=== PATIENT | male | born 1980 | race American Indian/Alaskan Native ===

== ENCOUNTER 2023-10-06 23:12 | Emergency (ER) | payer OTHER ==
[2023-10-06 23:41] LABS: BASOPHILS PERCENT AUTO 0.1 % (0.0-1.0); HEMATOCRIT 45.2 % (40.0-54.0); HEMOGLOBIN 14.9 g/dL (14.0-18.0); LYMPHOCYTES PERCENT AUTO 27.7 % (20.5-50.1); MEAN CORPUSCULAR HEMOGLOBIN 30.7 pg (27.0-34.0); MEAN CORPUSCULAR VOLUME 93.2 fL (80-100); MONOCYTES PERCENT AUTO 9.5 % (2-8); NEUTROPHILS PERCENT AUTO 59.7 % (42.2-75.2); PLATELET COUNT,PLT 278 10^3/uL (150-450); RED BLOOD CELL COUNT 4.85 10^6/uL (4.6-6.2); WHITE BLOOD CELL COUNT,WBC 9.9 10^3/uL (5.0-10.0)
[2023-10-06 23:56] VITALS: BP 144/83; PULSE 58
[2023-10-06 23:59] LABS: A/G RATIO 0.8; ALBUMIN 3.5 g/dL (3.4-5.0); ANION GAP 13.5 mEq/L (7-13); BILIRUBIN TOTAL 0.3 mg/dL (0.2-1.0); BUN/CREATININE RATIO 15.9 (No establ ref range); CALCIUM 8.7 mg/dL (8.5-10.1); CREATININE 0.88 mg/dL (0.70-1.30); EST CRCL DRUG DOSING (CG) 120.03 mL/min; POTASSIUM,K 3.5 mmol/L (3.5-5.1); PROTEIN TOTAL,TP 7.7 g/dL (6.4-8.2)
[2023-10-07 00:37] LABS: APPEARANCE,URINE CLEAR (CLEAR); BILIRUBIN,URINE NEGATIVE (NEGATIVE); COLOR,URINE YELLOW (YELLOW); GLUCOSE,URINE NEGATIVE (NEGATIVE); KETONES,URINE NEGATIVE (NEGATIVE); LEUKOCYTE ESTERASE,URINE NEGATIVE (NEGATIVE); NITRITE,URINE NEGATIVE (NEGATIVE); OCCULT BLOOD,URINE TRACE-INTACT (NEGATIVE); PROTEIN,URINE NEGATIVE (NEGATIVE); UROBILINOGEN,URINE 0.2 mg/dL (0.2-1.0)
[2023-10-07 00:49] LABS: BACTERIA,URINE RARE /HPF (0-FEW/HPF); EPITHELIAL CELLS,URINE RARE /HPF (NOT SEEN); RBC,URINE 0-5 /HPF (0-5); WBC,URINE 0-5 /HPF (0-5/HPF)
== END 2023-10-07 02:26 | disposition home or self-care (01) ==
LOC: DL.ED 23:12
DX: R07.9 Chest pain, unspecified (principal); Z79.899 Other long term (current) drug therapy
CPT/HCPCS: 36415; 71045; 80053; 81001; 84484; 85025; 85379; 93005; 93010; 99284; 99285

== ENCOUNTER 2024-08-10 08:39 | Day surgery (SDC) | payer OTHER ==
[~2024-08-10 08:39] MED LIST: Bupivacaine 0.5% 30 ML SDV ONE; Dexamethasone 4 MG/ML SDV ONE; Ketorolac 30 MG/ML SDV ONE; Lidocaine 1% 2 ML ONE; Lidocaine 1% 30 ML SDV ONE; Midazolam 1 MG/ML 2 ML SDV ONE; Ondansetron 4 MG/2 ML SDV ONE; Propofol 200 MG/20 ML SDV ONE
[2024-08-10] MEDS ORDERED: Ketamine 500 mg/10 ML MDV IV ONE (08:40)
[2024-08-10] MEDS ORDERED: Propofol 200 MG/20 ML SDV IV ONE (08:40)
[2024-08-10] MEDS ORDERED: Midazolam 1 MG/ML 2 ML SDV IV ONE ×2 (08:40)
[2024-08-10] MEDS ORDERED: Dexamethasone 4 MG/ML SDV IV ONE (08:40)
[2024-08-10] MEDS ORDERED: Rocuronium 100 MG/10 ML MDV ONE (08:57)
[2024-08-10] MEDS ORDERED: Succinylcholine 200 MG/10 ML MDV ONE (08:57)
[2024-08-10] MEDS: Lactated Ringers 1,000 ML IV SCH (09:31)
[2024-08-10] MEDS: ceFAZolin 2 GM Vial IVPUSH ONE (09:40)
[2024-08-10] MEDS: Bupivacaine 0.5% 30 ML SDV INJECT ONE (09:50)
[2024-08-10] MEDS: Lidocaine 1% 30 ML SDV INJECT ONE (09:50)
[2024-08-10] MEDS ORDERED: ceFAZolin 2 GM Vial ONE (10:10)
[2024-08-10] MEDS ORDERED: ceFAZolin 1 GM Vial ONE (10:10)
[2024-08-10 11:26] VITALS: BP 123/67; PULSE 46
== END 2024-08-10 11:40 | disposition home or self-care (01) ==
LOC: DL.SDS 08:39
PROVIDERS: ATTEND Podiatrist Foot & Ankle Surgery
DX: M67.471 Ganglion, right ankle and foot (principal)
CPT/HCPCS: 00400; 28092; J0665; J0690; J1100; J2250; J2704; J3490; J7120; J0330